=== PATIENT | female | born 1990 | race Caucasian/White ===

== ENCOUNTER 2017-05-29 05:58 | Day surgery (SDC) | payer OTHER ==
[2017-05-26 08:13] VITALS: BMI 32.5
[2017-05-29] MEDS ORDERED: Levofloxacin 500 mg/D5W 100 ml Premix Bag ONE (06:22)
[2017-05-29] MEDS ORDERED: Fentanyl 100 MCG/2 ML VIAL ONE (07:07)
[2017-05-29] MEDS ORDERED: Iothalamate Meglumine 60% 50 ML VIAL FS ONE (07:16)
[2017-05-29] MEDS ORDERED: Lidocaine 1% PF 5 ML VIAL ONE (07:32)
[2017-05-29] MEDS ORDERED: ePHEDrine/0.9% NaCl/PF SYRINGE 50 mg/10 ml ONE (07:32)
[2017-05-29] MEDS ORDERED: Ondansetron HCl/PF 4 MG/2 ML Vial ONE (07:32)
[2017-05-29] MEDS ORDERED: Dexamethasone 20 MG/5 ML VIAL ONE (07:32)
[2017-05-29] MEDS ORDERED: Propofol 200 MG/20 ML VIAL ONE (07:32)
--- NOTE | 2017-05-29 08:11 | RAD ---
RETROGRADE IVP: COMPARISON: 05/07/17. HISTORY: Right hydronephrosis. FINDINGS/IMPRESSION: Multiple limited intraoperative fluoroscopic views from a retrograde IVP were submitted for interpre tation. There is contrast in the right renal collecting system with moderate right hydronephrosis. No obvious filling defects are seen. POS: LUIS
--- NOTE | 2017-05-29 09:04 | OP ---
DATE OF PROCEDURE: 05/29/2017 PREOPERATIVE DIAGNOSIS: Right ureteral stones. POSTOPERATIVE DIAGNOSIS: Right ureteral stones. PROCEDURE PERFORMED: Cysto, discontinue right stent, right rigid ureteroscopy with stone retrieval and stent replacement. SURGEON: Dr. Abilio Brown ANESTHESIA: General. ESTIMATED BLOOD LOSS: Minimal. DRAINS PLACED: A 4.8 x 26 cm right double-J stent with string attached. FINDINGS: There were 3 stone fragments adjacent to each other that were removed with a nitinol bask et. Retrograde study showed no further stones filling defect or obstruction. She still has some mi ld hydro which could be related to stone as well as to her recent , no extravasation noted. OPERATIVE TECHNIQUE: After obtaining written and verbal consent from the patient after receiving IV antibiotics, she was taken to the operating suite. She was placed in the supine position on the tr eatment table. PlexiPulses were placed on her lower extremities and turned on. She was given a gen eral anesthetic, oral obturator intubation. She was placed in the dorsal lithotomy position and angel luis rilely prepped and draped. Cystoscopy was performed with a 22-[place] sheath. This was well lubrica ken and passed under direct vision through the female urethra into the urinary bladder with aid of a 30-degree lens and video camera and monitor. The bladder was filled and emptied a number of times. The distal end of the double-J stent was grasped and brought out through the urethral meatus. A 0 .038 guidewire was fed up across this and the stent was removed over the wire. A small rigid ureter oscope, calibrated rigid ureteroscope was brought in and passed under direct vision through the fema le urethra into the bladder and up the right ureter adjacent to the guidewire. The stones were seen about 3-4 cm proximal to the right ureteral orifice. We could see that this had been initially 1 s tone that had fragmented using a nitinol basket and removed the 3 fragments. A couple of tiny littl e fragments which we did not bother removing, then we did ureteroscopy all the way up to the renal p shari. No other abnormality was noted. The instruments were removed. A 5 [place] Pollack catheter was passed up into the renal pelvis after the guidewire was backloaded through the 22 [place]an sheath. We shot contrast through this filling out the entire collecting system and no other stones or obst ruction or extravasation were noted. The guidewire was replaced. The open-ended catheter was remov ed and a stent was placed over the guidewire pushed up in place with aid of a pusher so its proximal end coiled in the renal pelvis and its distal end coiled in the bladder when the wire was removed. A string was left attached coming out of the urethral meatus. The bladder was drained, the instrum ents were removed. She was taken out of dorsal lithotomy position, awakened, extubated, and taken b y stretcher to the recovery room.
[2017-06-01 11:19] LABS: CA Oxalate Dihydrate 10 % (.); CA Oxalate Monohydrate 15 % (.); CA Phosphate 75 % (.); Color Tan (.)
== END 2017-05-29 09:30 | disposition home or self-care (01) ==
LOC: SDC 05:58
PROVIDERS: ATTEND Urology
PROC: 0TC68ZZ Extirpation of Matter from Right Ureter, Via Natural or Artificial Opening Endoscopic (ICD-10-PCS; principal; 2017-05-29)
PROC: 0T768DZ Dilation of Right Ureter with Intraluminal Device, Via Natural or Artificial Opening Endoscopic (ICD-10-PCS; principal; 2017-05-29)
PROC: 0TP98DZ Removal of Intraluminal Device from Ureter, Via Natural or Artificial Opening Endoscopic (ICD-10-PCS; principal; 2017-05-29)
DX: N20.1 Calculus of ureter (principal); N13.30 Unspecified hydronephrosis; Z79.2 Long term (current) use of antibiotics; Z79.899 Other long term (current) drug therapy; Z98.890 Other specified postprocedural states; Z87.891 Personal history of nicotine dependence
CPT/HCPCS: 74420; 82365; 88300; C1758; J1100; J1956; J2001; J2405; J2704; J3010; Q9961

== ENCOUNTER 2019-12-19 05:26 | Inpatient (IN) | payer OTHER ==
[2019-12-19 06:06] VITALS: BMI 31.9
[2019-12-19] MEDS ORDERED: Diphenoxylate HCl/Atropine Tablet PO PRN ×2 (06:19)
[2019-12-19] MEDS ORDERED: Acetaminophen 500 MG TAB PO PRN (06:19)
[2019-12-19] MEDS ORDERED: Misoprostol 200 MCG TAB PR PRN (06:19)
[2019-12-19] MEDS ORDERED: Docusate 100 MG CAP PO PRN (06:19)
[2019-12-19] MEDS ORDERED: NS w/ Oxytocin 10 units 500 ML IV SCH (06:19)
[2019-12-19] MEDS ORDERED: HYDROcodone/Acetaminophen 5/325 mg Tablet PO PRN ×2 (06:19)
[2019-12-19] MEDS ORDERED: Ondansetron PF 4 MG/2 ML Vial IVP PRN (06:19)
[2019-12-19] MEDS ORDERED: Lidocaine 1% (PF) 30 ML VIAL SC PRN (06:19)
[2019-12-19] MEDS ORDERED: Ibuprofen 800 MG TAB PO PRN (06:19)
[2019-12-19] MEDS ORDERED: Promethazine HCl 25 MG/ML VIAL IM PRN (06:19)
[2019-12-19] MEDS ORDERED: Butorphanol Tartrate 1 MG/ML VIAL SLOW IVP PRN (06:19)
[2019-12-19] MEDS ORDERED: NS / Oxytocin 40 units/1000ml 1,000 ML IV PRN (06:19)
[2019-12-19] MEDS ORDERED: hydrALAZINE 20 MG/ML VIAL SLOW IVP PRN ×2 (06:19→22:32)
[2019-12-19 06:28] LABS: Hemoglobin 11.3 g/dL (12.0-16.0); Mean Corpuscular HGB CONC 33.4 g/dL (32.0-36.0); Mean Corpuscular Hemoglobin 28.8 pg (27.0-31.0); Mean Corpuscular Volume 86.2 fL (78.0-98.0); Mean Platelet Volume 7.4 fL (7.4-10.4); Platelet Count 237 thou/uL (130-400); RBC Distribution Width 13.5 % (11.5-14.5); Red Blood Cell (RBC) Count 3.92 mill/uL (4.20-5.40); White Blood Cell (WBC) Count 11.8 thou/uL (4.8-10.8)
[2019-12-19] MEDS: Lactated Ringer's 1,000 ML IV SCH ×3 (06:52→22:54)
[2019-12-19 07:07] LABS: HBSAg Index 0.16 S/CO (0-0.99); Hep B Surf Ag Non-Reactive S/CO (NonReactive); Syphilis Antibody Nonreactive (Nonreactive); Syphilis Antibody Index 0.05 S/CO (<1.00 Non-Reactive)
[2019-12-19] MEDS ORDERED: Bupivacaine/Epinephrine 0.25% 30 ML VIAL ONE (08:51)
[2019-12-19] MEDS ORDERED: Fentanyl 4 mcg/Bup 0.1% Cadd 100 ML ONE (09:07)
[2019-12-19] MEDS: NS w/ Oxytocin 10 units 500 ML IV SCH (17:33)
[2019-12-19] MEDS ORDERED: NS / Oxytocin 40 units/1000ml 1,000 ML IV SCH (22:30)
[2019-12-19] MEDS ORDERED: Benzocaine-Menthol 82.5 ML CAN TOP PRN (22:30)
[2019-12-19] MEDS ORDERED: Bisacodyl 10 MG SUPP PR PRN (22:30)
[2019-12-19] MEDS ORDERED: Acetaminophen/Codeine 30-300mg Tablet PO PRN (22:30)
[2019-12-19] MEDS ORDERED: Sodium Chloride 0.9% 1,000 ML IV SCH (22:30)
[2019-12-19] MEDS ORDERED: Milk Of Magnesia 30 ML UDCUP PO PRN (22:30)
[2019-12-20] MEDS: Acetaminophen/Codeine 30-300mg Tablet PO PRN ×2 (00:05→10:59)
[2019-12-20] MEDS: Ibuprofen 800 MG TAB PO SCH ×2 (05:27→14:56)
[2019-12-20] MEDS: NS w/ Oxytocin 10 units 500 ML IV SCH (06:53)
[2019-12-20] MEDS: Lactated Ringer's 1,000 ML IV SCH ×2 (06:53→14:50)
[2019-12-20] MEDS: Ferrous Sulfate 325 MG TAB PO SCH ×2 (08:03→08:14)
[2019-12-20] MEDS ORDERED: Docusate Calcium (SURFAK) 240 MG CAP PO SCH (09:00)
[2019-12-20] MEDS ORDERED: Adacel (T-DAP) 0.5 ML SYRINGE IM SCH (09:00)
[2019-12-20 13:16] VITALS: BP 109/66; TEMP 98.2
== END 2019-12-20 16:15 | disposition home or self-care (01) | DRG 806 ==
LOC: L&D 05:26 → 3SW 17:21 → EDSTATUS 12-21 14:40
PROVIDERS: ADMIT Obstetrics & Gynecology; ATTEND Obstetrics & Gynecology
PROC: 10E0XZZ Delivery of Products of Conception, External Approach (ICD-10-PCS; principal; 2019-12-19)
PROC: 0KQM0ZZ Repair Perineum Muscle, Open Approach (ICD-10-PCS; 2019-12-19)
PROC: 10907ZC Drainage of Amniotic Fluid, Therapeutic from Products of Conception, Via Natural or Artificial Opening (ICD-10-PCS; 2019-12-19)
DX: O77.0 Labor and delivery complicated by meconium in amniotic fluid (principal); O99.354 Diseases of the nervous system complicating childbirth; Z37.0 Single live birth; Z3A.39 39 weeks gestation of pregnancy; O70.1 Second degree perineal laceration during delivery; G43.909 Migraine, unspecified, not intractable, without status migrainosus; F32.9 Major depressive disorder, single episode, unspecified; F41.9 Anxiety disorder, unspecified; O99.344 Other mental disorders complicating childbirth; Z79.899 Other long term (current) drug therapy
CPT/HCPCS: 36415; 51702; 85027; 86780; 86850; 86900; 86901; 87340; J2590